=== PATIENT | male | born 1970 | race Caucasian/White ===

== ENCOUNTER 2020-12-08 13:48 | Day surgery (SDC) | payer BC ==
[~2020-12-08] VITALS: Ht 172.7 cm; Wt 106.0 kg
[2020-12-08] MEDS ORDERED: NORCO 325 MG-51 TAB PO (14:34)
[2020-12-08 14:35] VITALS: BP 124/73; PULSE 58; TEMP 98.1
[2020-12-08] MEDS ORDERED: MIRAPEX 0.0.125 MG/T PO (14:35)
[2020-12-08 17:30] VITALS: TEMP 97.4
[2020-12-08 17:35] VITALS: BP 118/68; PULSE 58
--- NOTE | 2020-12-08 17:35 | NUR ---
The patient arrived back to [facility] from the recovery room at this time. The patient appears alert and oriented and reports minimal pain at this time. Post operative vital signs were started at this time. The patient agrees to try some orange juice and a muffin at this time. The patient's is at his bedside at this time. The patient's call light is within reach. Will continue to monitor the patient.
[2020-12-08 17:55] VITALS: BP 128/94; PULSE 59
--- NOTE | 2020-12-08 17:55 | NUR ---
The patient has finished his food and drink and voices a desire to try and void at this time. The patient ambulated to the bathroom with the stand by assistance of one nurse and appeared to tolerate the activity well.
[2020-12-08 18:05] VITALS: BP 121/61; PULSE 66
--- NOTE | 2020-12-08 18:05 | NUR ---
The patient voided without difficulty and voices a desire to be discharged home. Discharge instructions were reviewed with the patient and his at this time. They both verbalilzed understanding and have no questions for the nurse at this time. The patient's IV to his right hand was removed and a pressure dressing was applied to the site. The nurse instructed the patient to get dressed and notify the staff when he is ready to be escorted out.
--- NOTE | 2020-12-08 18:18 | NUR ---
The patient was escorted out via wheelchair to a private vehicle by ROGERIO Cox. The patient's belonging and discharge paperwork were sent with him. The patient's is present to drive home. 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
[2020-12-08 18:25] VITALS: BP 118/68; PULSE 54
== END 2020-12-08 18:18 | disposition home or self-care (01) ==
LOC: SDCO 13:48
DX: N20.1 Calculus of ureter (principal); M19.90 Unspecified osteoarthritis, unspecified site; F17.210 Nicotine dependence, cigarettes, uncomplicated; Z79.899 Other long term (current) drug therapy; Z20.822 Contact with and (suspected) exposure to COVID-19; Z79.891 Long term (current) use of opiate analgesic
CPT/HCPCS: C1769; C2617; J0330; J0690; J1100; J1885; J2704; J3010; J7120; Q9967